=== PATIENT | female | born 1975 | race Caucasian/White ===

== ENCOUNTER 2017-03-03 11:48 | Outpatient (CLI) | payer MEDICAID ==
[2017-03-03 12:22] LABS: APPEARANCE,URINE CLEAR; BILIRUBIN,URINE NEGATIVE (NEGATIVE); GLUCOSE, URINE NEGATIVE (NEGATIVE); KETONES,URINE NEGATIVE (NEGATIVE); LEUKOCYTE ESTERASE,URINE TRACE (NEGATIVE); NITRITE,URINE NEGATIVE (NEGATIVE); PROTEIN,URINE NEGATIVE (NEGATIVE); URINE SPECIFIC GRAVITY 1.009; UROBILINOGEN,URINE NEGATIVE mg/dL (<2.0)
--- NOTE | 2017-03-03 12:31 | Non Stress Test Report ---
Non Stress Test Datetime Report Generated by CPN: 03/03/2017 12:30 DEMOGRAPHIC Test Number: 1 EGA NST: 38.0 INDICATION Indication for Study: Ordered by Provider Indication for Study (NST) Other: Labor Check MONITORING Monitor Explained: Monitor Explained; Test Explained; Patient Verbalized Understanding Time on Monitor: 03/03/2017 12:06 Time off Monitor: 03/03/2017 12:29 NST Duration: 23 NST INTERVENTIONS NST Interventions: PO Hydration; Reposition Patient Physician Notified NST: Dr. Neilsen BABY A: [id number] BABY A Movement : Present Contraction Frequency : irregular FHR Baseline : 140 Accelerations : 15X15 Decelerations : None Variability : Moderate 6-25bpm NST Review: Meets Criteria for Reactive NST NST Review and Verified By : Ирина Echeverria RN NST Results: Reactive NST REPORT Report Trigger: Send Report
[2017-03-03 12:37] LABS: URINE BARBITURATES SCREEN NEGATIVE; URINE METHADONE SCREEN NEGATIVE; URINE OPIATES LOW NEGATIVE; URINE PHENCYCLIDINE SCREEN NEGATIVE
== END 2017-03-03 13:25 | disposition home or self-care (01) ==
LOC: LC 11:48
PROVIDERS: ATTEND Specialist
DX: Z34.83 Encounter for supervision of other normal pregnancy, third trimester (principal); Z3A.38 38 weeks gestation of pregnancy
CPT/HCPCS: 59025; 80307; 81005

== ENCOUNTER 2017-03-11 11:57 | Inpatient (IN) | payer MEDICAID ==
[2017-03-11] MEDS ORDERED: OXYTOCIN/NORMAL SALINE 1,000 ML IV PRN (12:03)
[2017-03-11] MEDS ORDERED: RINGERS SOLUTION,LACTATED 300 ML IV ONE (12:03)
[2017-03-11] MEDS ORDERED: OXYTOCIN/NORMAL SALINE 20 UNIT/1,000 ML RTUINJ ONE ×2 (13:03→15:28)
[2017-03-11] MEDS ORDERED: LIDOCAINE 1% INJ-PF (10 MG/ML) 30 ML SDV ONE (13:03)
[2017-03-11] MEDS ORDERED: MISOPROSTOL 0.2 MG TABLET ONE (13:03)
[2017-03-11 13:12] LABS: APPEARANCE,URINE CLEAR; BILIRUBIN,URINE NEGATIVE (NEGATIVE); GLUCOSE, URINE NEGATIVE (NEGATIVE); KETONES,URINE NEGATIVE (NEGATIVE); LEUKOCYTE ESTERASE,URINE TRACE (NEGATIVE); NITRITE,URINE NEGATIVE (NEGATIVE); PROTEIN,URINE NEGATIVE (NEGATIVE); URINE SPECIFIC GRAVITY 1.006; UROBILINOGEN,URINE NEGATIVE mg/dL (<2.0)
[2017-03-11] MEDS: RINGERS SOLUTION,LACTATED 1,000 ML IV PRN ×2 (13:14→17:41)
[2017-03-11] MEDS: OXYTOCIN/NORMAL SALINE 1,000 ML IV PRN ×2 (13:15→17:41)
[2017-03-11 13:19] LABS: ABSOLUTE EOSINOPHILS # (AUTO) 0.1 10^3/uL (0.0-0.6); ABSOLUTE LYMPHOCYTES (AUTO) 2.2 10^3/uL (0.5-4.7); ABSOLUTE MONOCYTES (AUTO) 0.6 10^3/uL (0.1-1.4); ABSOLUTE NEUT (AUTO) 8.2 10^3/uL (1.7-8.2); BASOPHILS % (AUTO) 0.3 % (0-2); EOSINOPHILS % (AUTO) 0.7 % (0-6); HEMATOCRIT 33.1 % (36.0-47.0); HEMOGLOBIN 11.4 g/dL (12.0-15.5); HGB HCT DIFFERENCE 1.1; LYMPHOCYTES % (AUTO) 19.9 % (13-45); MEAN CORPUSCULAR HEMOGLOBIN 32.1 pg (27.0-33.4); MEAN CORPUSCULAR HGB CONC 34.5 g/dL (32.0-36.0); MEAN CORPUSCULAR VOLUME 93 fl (80-97); MONOCYTES % (AUTO) 5.8 % (3-13); RED BLOOD COUNT 3.54 10^6/uL (3.72-5.28); RED CELL DISTRIBUTION WIDTH 12.8 % (11.5-14.0); SEGMENTED NEUTROPHILS % (AUTO) 73.3 % (42-78); WHITE BLOOD COUNT 11.2 10^3/uL (4.0-10.5)
[2017-03-11 13:29] LABS: URINE BARBITURATES SCREEN NEGATIVE; URINE METHADONE SCREEN NEGATIVE; URINE OPIATES LOW NEGATIVE; URINE PHENCYCLIDINE SCREEN NEGATIVE
[2017-03-11] MEDS ORDERED: FENTANYL CITRATE INJ/PF 100 MCG/2 ML AMPUL IV ONE (14:15)
[2017-03-11] MEDS ORDERED: FENTANYL CITRATE INJ/PF 100 MCG/2 ML AMPUL ONE (14:15)
[2017-03-11] MEDS ORDERED: ACETAMINOPHEN WITH CODEINE #3 TABLET ONE (15:27)
[2017-03-11] MEDS ORDERED: IBUPROFEN 800 MG TABLET ONE (15:28)
--- NOTE | 2017-03-11 16:41 | Delivery Summary ---
Del Sum A-C Datetime Report Generated by CPN: 03/11/2017 16:40 DELIVERY PERSONNEL DELIVERY PERSONNEL: [phone] Delivery Doctor:: Rosalino Garcia CNM Labor and Delivery Nurse:: Elisha Kothari RNdrafting layout worker Nurse:: NASIM Anderson Tech/PLUG MAKING OPERATOR: Machelle Sood CNA II MATERNAL INFORMATION Delivery Anesthesia: None Medications After Delivery: Pitocin Drip 20 Units/1000ml NSS Meds After Delivery Comment: 2 bags of pitocin given per Ирина Garcia CNM Estimated Blood Loss (ml): 300 Maternal Complications: Other Other Maternal Complications: AMA Provider Comments: increased urge to push bed prepared for delivery delivery of baby boy HEIDE infant to abdomen tactile stimulation elicits spont cry cord blood obtained 3VC placenta intact uterus explored min clots expelled fundus firm EBL 300 cc no lacerations bonding well with hemostasis achieved LABOR SUMMARY EDC: 03/17/2017 00:00 No. Babies in Womb: 1 Attempted: No Labor Anesthesia: IV Sedation LABOR INFORMATION Reason for Induction: Other Reason for Induction- Other: AMA Onset of Labor: 03/11/2017 13:45 Complete Dilatation: 03/11/2017 15:06 Oxytocin: Augmentation Group B Beta Strep: negative Steroids Given: None Reason Steroids Not Administered: Not Applicable MEMBRANES Membranes Rupture Method: Artificial Rupture of Membranes: 03/11/2017 13:38 Length of Rupture (hr): 1.55 Amniotic Fluid Color: Clear Amniotic Fluid Amount: Scant Amniotic Fluid Odor: Normal STAGES OF LABOR Stage 1 hr: 1 Stage 1 min: 21 Stage 2 hr: 0 Stage 2 min: 5 Stage 3 hr: 0 Stage 3 min: 2 Total Time in Labor hr: 1 Total Time in Labor min: 28 VAGINAL DELIVERY Episiotomy: None Laceration Extension: N/A Laceration Type: None Laceration Repair: Not Applicable Sponge Count Correct: Yes Sharps Count Correct: Yes CSECTION DELIVERY Primary Indication: N/A Secondary Indication: N/A CSection Incidence: N/A Labor: N/A Elective: N/A CSection Incision: N/A BABY A INFORMATION Delivery Date/Time: 03/11/2017 15:11 Method of Delivery: Vaginal Born in Route : No : N/A Forceps: N/A Vacuum Extraction: N/A Shoulder Dystocia : No PRESENTATION/POSITION BABY A Presentation: Cephalic Cephalic Presentation: Vertex Vertex Position: Right Occipital Anterior Breech Presentation: N/A PLACENTA INFORMATION BABY A Placenta Delivery Time : 03/11/2017 15:13 Placenta Method of Delivery: Spontaneous Placenta Status: Delivered SCORES BABY A Heart Rate 1 min: >100 bpm Resp Effort 1 min: Good Cry Reflex Irritability 1 min: Cough or Sneeze or Pulls Away Muscle Tone 1 min: Active Motion Color 1 min: Body [place], Extremities Blue Resuscitation Effort 1 min: Tactile Stimulation SCORE 1 MIN: 9 Heart Rate 5 min: >100 bpm Resp Effort 5 min: Good Cry Reflex Irritability 5 min: Cough or Sneeze or Pulls Away Muscle Tone 5 min: Active Motion Color 5 min: Body [place], Extremities Blue Resuscitation Effort 5 min: Tactile Stimulation SCORE 5 MIN: 9 INFORMATION BABY A Gestational Age at Delivery: 39.1 Gestational Status: Full Term- 39- 40.6 Weeks Infant Outcome : Liveborn Condition : Stable Infant Sex: Male IDENTIFICATION BABY A Infant Verification Date/Time: 03/11/2017 15:27 ID Band Number: [id number] Mother's Name Verified: Yes Infant RN Verifying : AEdel Guthrie RN Meme Carlton RN WEIGHT/LENGTH BABY A Birthweight (gm): 2630 Weight (lb): 5 Infant Weight (oz): 13 Length (in): 18.75 Length (cm): 47.63 CORD INFORMATION BABY A No. Cord Vessels: 3 Nuchal Cord : N/A Cord Blood Taken: Yes-For Storage (Mom's Blood type +) Suction: Mouth; Nose ASSESSMENT BABY A Infant Complications: None Physical Findings at Delivery: Within Normal Limits Infant Respirations: Appears Normal Skin to Skin: Yes Tester Armature Or Fields/ALS Called : No Care By: AEdel Guthrie RN Transferred To: Remains with Mother BABY B INFORMATION : N/A SIGNATURES Assignment: Brigid Bojorquez MD Signature: with User ID: [email or web address] : with User ID: [email or web address]
--- NOTE | 2017-03-11 17:36 | Admission Physical ---
Datetime Report Generated by CPN: 03/11/2017 17:36 CURRENT ADMISSION Admit Plan: Admit to Unit; Initiate Labor Induction Protocol ALLERGIES Medication Allergies: Yes Medication Allergies: aspirin (02/25/2013); pseudoephedrine (03/03/2017) Medication Allergies: aspirin (02/25/2013), sudafed Latex: No Latex Allergies Food Allergies: none Environmental Allergies: none OBSTETRICAL HISTORY EDC: 03/17/2017 00:00 : 8 Para: 7 Term: 5 : 2 SAB: 0 IAB: 0 Ectopic: 0 Livin Cesareans: 0 VBACs: 0 Multiple Births: 0 Gestational Diabetes: No Rh Sensitization: No Incompetent Cervix: No ANNETTE: No Infertility: No ART Treatment: No Uterine Anomaly: No IUGR: Yes Hx Previous C/S: No Macrosomia: No Hx Loss/Stillborn: No PIH: No Hx : No Placenta Previa/Abruption: No Depression/PP Depression: No PTL/PROM: No Post Hemorrhage: Yes Current Procedures: Ultrasound Obstetrical History Comments: G1: 36 weeks, 1995 G2: 38 weeks 1996 G3: 37 weeks, 2001 G4: 37 weeks 2004 G5: 36 weeks, 2006 G6: 39 weeks, 2010 G7: 37 weeks, 2014 G8: current SEE RECORDS Alcohol: No Marijuana : No Cocaine: No Other Illicit Drugs: No Cigarettes: Current Everyday Smoker. [id number] MEDICAL HISTORY Diabetes: No Blood Transfusion: No Pulmonary Disease (Asthma, TB): No Breast Disease: No Hypertension: No Rope Walker Surgery: No Heart Disease: No Hosp/Surgery: No Autoimmune Disorder: No Anesthetic Complications: No Kidney Disease: Yes Abnormal Pap Smear: Yes Neuro/Epilepsy: No Psychiatric Disorders: No Other Medical Diseases: No Hepatitis/Liver Disease: No Significant Family History: No Varicosities/Phlebitis: No Trauma/Violence : No Thyroid Dysfunction: No Medical History Comments: Soft sponge medula kidney disease asthma, COPD LEEP INFECTIOUS HISTORY Gonorrhea: No Genital Herpes: No Chlamydia: No Tuberculosis: No Syphilis: No Hepatitis: No HIV/AIDS Exposure: No Rash or Viral Illness: No HPV: Yes PHYSICAL EXAM General: Normal HEENT: Normal Neurologic: Normal Thyroid: Normal Heart: Normal Lungs: Normal Breast: Normal Back: Normal Abdomen: Normal Genitourinary Exam: Normal Extremities: Normal DTRs: Normal Pelvic Type: Adequate FETUS A Monitoring: External US FHR- Baseline: 120 Variability: Moderate 6-25bpm Decelerations: None FHR Category: Category I Presentation: Vertex Admit Comment: 42yo presents for iol secondary to AMA EDC 03/17/17 EGA 39.1 history- 2 previous LEEPS- 2 deliveries since then abdomen nontender cvx -1 AROMclear with bloody show AMA Grand Multip History of LEEP pitocin induction plan of care reviewed AROM clear anticipate PLANS FOR LABOR AND DELIVERY Labor and Delivery: None Pain Management: Epidural Feeding Preference: Breast Benefit of Breast Feed Discussed: Yes Circumcision: No INFORMED CONSENT Informed Consent Obtained: Vaginal Delivery; Induction of Labor; Risks, Benefits and Alternatives Discussed Assignment: Brigid Bojorquez MD Signature: with User ID: [email or web address] : with User ID: [email or web address]
[2017-03-11] MEDS ORDERED: DIBUCAINE 1% OINTMENT 28 GM TP PRN (18:46)
[2017-03-11] MEDS ORDERED: DIPH/PERTUSS(ACELL)/TETANUS VAC/PF 0.5 ML SYR (>=10YO) IM PRN (18:46)
[2017-03-11] MEDS ORDERED: ZOLPIDEM TARTRATE 5 MG TABLET PO PRN (18:46)
[2017-03-11] MEDS ORDERED: BENZOCAINE/MENTHOL AEROSOL SPRAY 56 ML TOP PRN (18:46)
[2017-03-11] MEDS ORDERED: MEASLES,MUMPS&RUBELLA VACC/PF 0.5 ML VIAL SUBCUT PRN (18:46)
[2017-03-11] MEDS ORDERED: ACETAMINOPHEN WITH CODEINE #3 TABLET PO PRN ×2 (18:46)
[2017-03-11] MEDS: IBUPROFEN 800 MG TABLET PO SCH (21:38)
[2017-03-12] MEDS: IBUPROFEN 800 MG TABLET PO SCH ×2 (05:32→13:43)
[2017-03-12 07:32] LABS: HEMATOCRIT 31.8 % (36.0-47.0); HEMOGLOBIN 10.9 g/dL (12.0-15.5); HGB HCT DIFFERENCE 0.9; MEAN CORPUSCULAR HEMOGLOBIN 32.1 pg (27.0-33.4); MEAN CORPUSCULAR HGB CONC 34.4 g/dL (32.0-36.0); MEAN CORPUSCULAR VOLUME 93 fl (80-97); RED BLOOD COUNT 3.41 10^6/uL (3.72-5.28); RED CELL DISTRIBUTION WIDTH 12.9 % (11.5-14.0); WHITE BLOOD COUNT 12.7 10^3/uL (4.0-10.5)
[2017-03-12 08:26] VITALS: BP 111/67
--- NOTE | 2017-03-12 09:40 | PDOC PROGRESS REPORT ---
Subjective-OB Subjective: Post Delivery Day: 42 year old. Denies any needs at this time Physical Exam (OB) Vital Signs: Temp Pulse Resp BP Pulse Ox 97.8 F 71 17 111/67 98 03/12/17 08:12 03/12/17 08:12 03/12/17 08:12 03/12/17 08:12 03/12/17 08:12 Intake & Output 03/11/17 03/12/17 03/13/17 06:59 06:59 06:59 Weight 68.55 kg - Lochia Lochia Amount: Scant < 10 ml Lochia Color: Rubra/Red - Abdomen Description: Tender, Soft Hernia Present: No Bowel Sounds: Normoactive Flatus Presence: Present Stool: No Fundal Description: Firm, Midline Fundal Height: u/u - u/2 Objective-Diagnostic Laboratory: 03/12/17 07:00 03/11/17 03/11/17 03/11/17 12:01 13:01 13:01 WBC 11.2 H RBC 3.54 L Hgb 11.4 L Hct 33.1 L MCV 93 MCH 32.1 MCHC 34.5 RDW 12.8 Plt Count 249 Seg Neutrophils % 73.3 Lymphocytes % 19.9 Monocytes % 5.8 Eosinophils % 0.7 Basophils % 0.3 Absolute Neutrophils 8.2 Absolute Lymphocytes 2.2 Absolute Monocytes 0.6 Absolute Eosinophils 0.1 Absolute Basophils 0.0 Urine Color YELLOW Urine Appearance CLEAR Urine pH 7.0 Ur Specific [place] 1.006 Urine Protein NEGATIVE Urine Glucose (UA) NEGATIVE Urine Ketones NEGATIVE Urine Blood NEGATIVE Urine Nitrite NEGATIVE Ur Leukocyte Esterase TRACE H Blood Type A POSITIVE Antibody Screen NEGATIVE 03/12/17 07:00 WBC 12.7 H RBC 3.41 L Hgb 10.9 L Hct 31.8 L MCV 93 MCH 32.1 MCHC 34.4 RDW 12.9 Plt Count 249 Seg Neutrophils % Lymphocytes % Monocytes % Eosinophils % Basophils % Absolute Neutrophils Absolute Lymphocytes Absolute Monocytes Absolute Eosinophils Absolute Basophils Urine Color Urine Appearance Urine pH Ur Specific [place] Urine Protein Urine Glucose (UA) Urine Ketones Urine Blood Urine Nitrite Ur Leukocyte Esterase Blood Type Antibody Screen
[2017-03-12] MEDS ORDERED: [UNRECOGNIZED DRUG - OTHER] PO SCH (10:00)
[2017-03-12] MEDS ORDERED: FISH OIL PO SCH (10:00)
[2017-03-12] MEDS ORDERED: DHA PO SCH (10:00)
[2017-03-12] MEDS: FERROUS SULFATE 325 MG TABLET PO SCH ×2 (10:00→17:44)
[2017-03-12] MEDS ORDERED: SENNOSIDES/DOCUSATE 8.6-50 MG 1 EACH TABLET PO SCH (10:00)
[2017-03-12] MEDS ORDERED: PRENATAL VITAMIN W-O CA NO5/FE FUMARATE/FA CAPSULE PO SCH ×2 (10:00)
[2017-03-12] MEDS: DOCUSATE SODIUM 100 MG CAPSULE PO SCH ×2 (10:00→17:44)
[2017-03-12] MEDS ORDERED: OMEGA3 PO SCH (10:00)
--- NOTE | 2017-03-12 10:00 | PDOC DISCHARGE SUMMARY ---
Final Diagnosis Discharge Date: 03/12/17 - Final Diagnosis (1) AMA (advanced maternal age) multigravida 35+ Is this a current diagnosis for this admission?: Yes (2) Asthma Is this a current diagnosis for this admission?: Yes (3) Delivery normal Is this a current diagnosis for this admission?: Yes (4) Grand multipara Is this a current diagnosis for this admission?: Yes (5) History of loop electrical excision procedure (LEEP) Is this a current diagnosis for this admission?: Yes (6) Is this a current diagnosis for this admission?: Yes (7) Smoker Is this a current diagnosis for this admission?: Yes Discharge Data - Discharge Medication Home Medications: Wir406/FA/Omega3/Dha/Fish Oil [ Gummies] 1 tab PO DAILY 03/11/17 Pnv W-O Ca No5/Fe Fumarate/FA [-U Multiple Vitamin Capsule] 1 cap PO DAILY #0 capsule 03/12/17 Gestational Age: 39.1 wks Reason(s) for Admission: Induction of Labor Intrapartum Procedure(s): Spontaneous Vaginal Delivery - Diagnosis Test Laboratory: Temp Pulse Resp BP Pulse Ox 97.8 F 71 17 111/67 98 03/12/17 08:12 03/12/17 08:12 03/12/17 08:12 03/12/17 08:12 03/12/17 08:12 03/11/17 03/11/17 03/12/17 12:01 13:01 07:00 RBC 3.54 L 3.41 L Hgb 11.4 L 10.9 L Hct 33.1 L 31.8 L Urine Opiates Screen NEGATIVE - Discharge information/Instructions Discharge Activity: Activity As Tolerated, Balance Activity w/Rest, Pelvic Rest , Slowly Increase Activity, No tub bath Discharge Diet: Regular Disposition: HOME, SELF-CARE Follow up with: [facility] in: 4, Weeks
== END 2017-03-12 18:25 | disposition home or self-care (01) | DRG 775 ==
LOC: LR 11:57 → 2S 17:33
PROVIDERS: ADMIT Obstetrics & Gynecology; ATTEND Obstetrics & Gynecology
PROC: 10E0XZZ Delivery of Products of Conception, External Approach (ICD-10-PCS; principal; 2017-03-11)
PROC: 3E033VJ Introduction of Other Hormone into Peripheral Vein, Percutaneous Approach (ICD-10-PCS; 2017-03-11)
PROC: 10907ZC Drainage of Amniotic Fluid, Therapeutic from Products of Conception, Via Natural or Artificial Opening (ICD-10-PCS; 2017-03-11)
DX: O99.89 Other specified diseases and conditions complicating pregnancy, childbirth and the puerperium (principal); Q61.5 Medullary cystic kidney; O99.334 Smoking (tobacco) complicating childbirth; F17.210 Nicotine dependence, cigarettes, uncomplicated; O62.3 Precipitate labor; O75.89 Other specified complications of labor and delivery; J45.909 Unspecified asthma, uncomplicated; Z3A.39 39 weeks gestation of pregnancy; Z37.0 Single live birth; O09.523 Supervision of elderly multigravida, third trimester; O09.43 Supervision of pregnancy with grand multiparity, third trimester
CPT/HCPCS: 36415; 80307; 81005; 85025; 85027; 86592; 86850; 86900; 86901; 88307; 90707; J2590; J3010; J3490

== ENCOUNTER 2018-10-05 12:28 | Emergency (ER) | payer MEDICAID ==
--- NOTE | 2018-10-05 13:43 | ER Document Report ---
ED Medical Screen (RME) - General Chief Complaint: Flank Pain Stated Complaint: SIDE PAIN Time Seen by Provider: 10/05/18 13:31 TRAVEL OUTSIDE OF THE [place] IN LAST 30 DAYS: No - HPI Notes: 10/05/18 13:43 Right flank pain with history of medullary sponge kidney coming in for possible kidney stone. States pain on the right flank similar to kidney stones in the past. 10/05/18 13:43 Sent by urgent care - Related Data Allergies/Adverse Reactions: aspirin [Aspirin] Allergy (Verified 02/25/13 16:31) pseudoephedrine [From Sudafed] Allergy (Verified 03/03/17 12:30) Past Medical History - Social History Frequency of alcohol use: None Drug Abuse: None Pulmonary Medical History: Reports: Hx COPD Renal/ Medical History: Reports: Hx Kidney Stones. Denies: Hx Peritoneal Dialysis, Hx Pelvic Inflammatory Disease Past Surgical History: Reports: Hx Gynecologic Surgery - LEEP, Hx Urinary Tract Surgery - lithotrypsy Review of Systems - Review of Systems Genitourinary: Flank pain Physical Exam - Vital signs Vitals: Temp Pulse Resp BP Pulse Ox 98.2 F 76 18 125/79 99 10/05/18 12:33 10/05/18 12:33 10/05/18 12:33 10/05/18 12:33 10/05/18 12:33 - Respiratory Respiratory status: No respiratory distress Chest status: Nontender Breath sounds: Normal Chest palpation: Normal - Abdominal Inspection: Normal Distension: No distension Bowel sounds: Normal Tenderness: Nontender Course - Vital Signs Vital signs: Temp Pulse Resp BP Pulse Ox 98.2 F 76 18 125/79 99 10/05/18 12:33 10/05/18 12:33 10/05/18 12:33 10/05/18 12:33 10/05/18 12:33
[2018-10-05 14:12] LABS: APPEARANCE,URINE CLOUDY; BILIRUBIN,URINE NEGATIVE (NEGATIVE); COLOR,URINE YELLOW; GLUCOSE, URINE NEGATIVE (NEGATIVE); KETONES,URINE NEGATIVE (NEGATIVE); LEUKOCYTE ESTERASE,URINE LARGE (NEGATIVE); NITRITE,URINE NEGATIVE (NEGATIVE); PROTEIN,URINE 30 mg/dL (NEGATIVE); URINE SPECIFIC GRAVITY 1.019
[2018-10-05] MEDS ORDERED: KETOROLAC TROMETHAMINE INJ/PF 30 MG/1 ML SDV IV ONE (14:23)
--- NOTE | 2018-10-05 14:28 | ER Document Report ---
ED General - General Mode of Arrival: Ambulatory Information source: Patient TRAVEL OUTSIDE OF THE [place] IN LAST 30 DAYS: No <BILL MENDENHALL - Last Filed: 10/05/18 14:30> <ISMAEL MARTINEZ - Last Filed: 10/05/18 17:24> - General Chief Complaint: Flank Pain Stated Complaint: SIDE PAIN Time Seen by Provider: 10/05/18 13:31 Notes: Patient is a 43 year old female with medullary sponge kidney disease bilaterally , arthritis, emphysema was sent to the emergency department from urgent care complaining of right flank and right abdominal pain onset 2 days ago. Patient's associated symptoms include burning urination, hematuria and vomiting. Patient states she believes she has a kidney stone due her symptoms feeling similar to a previous one. Patient denies any fevers. (BILL MENDENHALL) - Related Data Allergies/Adverse Reactions: aspirin [Aspirin] Allergy (Verified 02/25/13 16:31) pseudoephedrine [From Sudafed] Allergy (Verified 03/03/17 12:30) Past Medical History - General Information source: Patient - Social History Smoking Status: Current Every Day Smoker Frequency of alcohol use: None Drug Abuse: None Family History: Other - kidney stones, raynauds Patient has suicidal ideation: No Patient has homicidal ideation: No Pulmonary Medical History: Reports: Hx COPD Renal/ Medical History: Reports: Hx Kidney Stones Past Surgical History: Reports: Hx Gynecologic Surgery - LEEP, Hx Urinary Tract Surgery - lithotrypsy '98 <BILL MENDENHALL - Last Filed: 10/05/18 14:30> Review of Systems - Review of Systems Constitutional: No symptoms reported EENT: No symptoms reported Cardiovascular: No symptoms reported Gastrointestinal: No symptoms reported Genitourinary: See HPI, Burning, Flank pain, Hematuria Female Genitourinary: No symptoms reported Musculoskeletal: No symptoms reported Skin: No symptoms reported Hematologic/Lymphatic: No symptoms reported Neurological/Psychological: No symptoms reported -: Yes All other systems reviewed and negative <BILL MENDENHALL - Last Filed: 10/05/18 14:30> Physical Exam <BILL MENDENHALL - Last Filed: 10/05/18 14:30> <ISMAEL MARTINEZ - Last Filed: 10/05/18 17:24> - Vital signs Vitals: Temp Pulse BP Pulse Ox 98.5 F 76 125/79 98 10/05/18 12:31 10/05/18 12:31 10/05/18 12:31 10/05/18 12:31 - Notes Notes: GENERAL: Alert, interacts well. No acute distress. HEAD: Normocephalic, atraumatic. EYES: Pupils equal, round, and reactive to light. Extraocular movements intact. ENT: Oral mucosa moist, tongue midline. NECK: Full range of motion. Supple. Trachea midline. LUNGS: Clear to auscultation bilaterally, no wheezes, rales, or rhonchi. No respiratory distress. HEART: Regular rate and rhythm. No murmurs, gallops, or rubs. ABDOMEN: Soft, non-tender. Non-distended. Bowel sounds present in all 4 quadrants. EXTREMITIES: Moves all 4 extremities spontaneously. NEUROLOGICAL: Alert and oriented x3. Normal speech. PSYCH: Normal affect, normal mood. SKIN: Warm, dry, normal turgor. No rashes or lesions noted. BACK: Right CVA tenderness to percussion. (BILL MENDENHALL) Course <BILL MENDENHALL - Last Filed: 10/05/18 14:30> - Laboratory Result Diagrams: 10/05/18 14:30 10/05/18 14:30 <ISMAEL MARTINEZ - Last Filed: 10/05/18 17:24> - Re-evaluation Re-evalutation: 10/05/18 16:54 CBC shows leukocytosis of 13.6, BMP normal, urinalysis shows small blood and large leukocyte esterase, test is negative, CT scan renal stone protocol does not show a stone or any signs of obstruction. It does show the known abnormalities to her kidneys. All of this more consistent with acute pyelonephritis with hematuria than a stone that is infected. Patient will be started on Bactrim and discharged to home. (ISMAEL MARTINEZ) - Vital Signs Vital signs: Temp Pulse Resp BP Pulse Ox 98.2 F 76 16 118/85 98 10/05/18 12:33 10/05/18 12:33 10/05/18 17:01 10/05/18 17:01 10/05/18 17:01 - Laboratory Laboratory results interpreted by me: 10/05/18 10/05/18 13:45 14:30 WBC 13.6 H Absolute Neutrophils 10.4 H Urine Protein 30 H Urine Blood SMALL H Urine Urobilinogen 2.0 H Ur Leukocyte Esterase LARGE H Discharge <BILL MENDENHALL - Last Filed: 10/05/18 14:30> <ISMAEL MARTINEZ - Last Filed: 10/05/18 17:24> - Discharge Clinical Impression: Urinary tract infection Qualifiers: Urinary tract infection type: acute pyelonephritis Qualified Code(s): N10 - Acute pyelonephritis Condition: Stable Disposition: HOME, SELF-CARE Additional Instructions: Pyelonephritis Your evaluation shows evidence of pyelonephritis. This is an infection in the kidney. Typical symptoms are fever, pain in the flank, pain on urination, and frequent urination. Many cases of pyelonephritis can be treated at home. Hospital care may be necessary for patients who are very ill, or elderly or . Pyelonephritis is treated with antibiotics. Be sure to take all the medication as prescribed. Drink plenty of liquids (about three quarts per day) . You may take acetaminophen for fever. You should feel significantly improved within two days. You should have a recheck of your urine in about one week to insure that the infection is gone. Return for a re-examination if your symptoms worsen in any way -- such as high fever, shaking chills, severe weakness or dizziness, severe pain, or inability to pass your urine. Prescriptions: Phenazopyridine HCl [Pyridium 200 mg Tablet] 200 mg PO TID #7 tablet Sulfamethoxazole/Trimethoprim [Bactrim Ds Tablet] 1 each PO BID #14 tablet Forms: Return to Work Referrals: MAT CAST DO [Primary Care Provider] - Follow up as needed Scribe Attestation: 10/05/18 17:23 I personally performed the services described in the documentation, reviewed and edited the documentation which was dictated to the scribe in my presence, and it accurately records my words and actions. (ISMAEL MARTINEZ) Scribe Documentation - Scribe Written by Lora:: Lora Cast, 10/05/2018 14:29 acting as scribe for :: Lynsey <BILL MENDENHALL - Last Filed: 10/05/18 14:30>
[2018-10-05 15:00] LABS: ABSOLUTE EOSINOPHILS # (AUTO) 0.1 10^3/uL (0.0-0.6); ABSOLUTE LYMPHOCYTES (AUTO) 2.2 10^3/uL (0.5-4.7); ABSOLUTE MONOCYTES (AUTO) 0.8 10^3/uL (0.1-1.4); ABSOLUTE NEUT (AUTO) 10.4 10^3/uL (1.7-8.2); BASOPHILS % (AUTO) 0.3 % (0-2); EOSINOPHILS % (AUTO) 0.8 % (0-6); HEMATOCRIT 42.3 % (36.0-47.0); HEMOGLOBIN 14.4 g/dL (12.0-15.5); LYMPHOCYTES % (AUTO) 16.3 % (13-45); MEAN CORPUSCULAR HEMOGLOBIN 32.3 pg (27.0-33.4); MEAN CORPUSCULAR VOLUME 95 fl (80-97); MONOCYTES % (AUTO) 6.1 % (3-13); PLATELET COUNT 306 10^3/uL (150-450); RED BLOOD COUNT 4.45 10^6/uL (3.72-5.28); RED CELL DISTRIBUTION WIDTH 13.5 % (11.5-14.0); SEGMENTED NEUTROPHILS % (AUTO) 76.5 % (42-78); TOTAL CELLS COUNTED % (AUTO) 100 %; WHITE BLOOD COUNT 13.6 10^3/uL (4.0-10.5)
[2018-10-05 15:20] LABS: ANION GAP 11 (5-19); BLOOD UREA NITROGEN 9 mg/dL (7-20); CALCIUM 9.8 mg/dL (8.4-10.2); CARBON DIOXIDE 27 mmol/L (22-30); CHLORIDE 104 mmol/L (98-107); GLUCOSE 91 mg/dL (75-110); POTASSIUM 3.9 mmol/L (3.6-5.0); SODIUM 142.3 mmol/L (137-145)
--- NOTE | 2018-10-05 15:46 | RADIOLOGY REPORT (SQ) ---
EXAM DESCRIPTION: CT LTD RENAL STONE PROTOCOL ON COMPLETED DATE/TIME: 10/05/2018 3:34 pm REASON FOR STUDY: right flank pain COMPARISON: None. TECHNIQUE: CT scan of the abdomen and pelvis performed without intravenous or oral contrast. Images reviewed with lung, soft tissue, and bone windows. Reconstructed coronal and sagittal MPR images revi ewed. All images stored on PACS. All CT scanners at this facility use dose modulation, iterative reconstruction, and/or weight based d osing when appropriate to reduce radiation dose to as low as reasonably achievable (ALARA). [facility]: Dose Right [facility]: CareDose [facility]: Dose Right [facility]: Teradose 4D [facility]: [employer] RADIATION DOSE: CT Rad equipment meets quality standard of care and radiation dose reduction techniq ues were employed. CTDIvol: 4.8 mGy. DLP: 245 mGy-cm.mGy. LIMITATIONS: None. FINDINGS: LOWER CHEST: No significant findings. No nodules or infiltrates. NON-CONTRASTED LIVER, SPLEEN, ADRENALS: Evaluation limited by lack of IV contrast. No identified sign ificant masses. PANCREAS: No masses. No peripancreatic inflammatory changes. GALLBLADDER: No identified stones by CT criteria. No inflammatory changes to suggest cholecystitis. RIGHT KIDNEY AND URETER: No suspicious masses. Assessment limited by lack of IV contrast. Papillary calcification. No hydronephrosis or hydroureter. LEFT KIDNEY AND URETER: No suspicious masses. Assessment limited by lack of IV contrast. Papillary calcifications. No hydronephrosis or hydroureter. AORTA AND RETROPERITONEUM: No aneurysm. No retroperitoneal masses or adenopathy. BOWEL AND PERITONEAL CAVITY: No obvious masses or inflammatory changes. No free fluid. APPENDIX: Surgically absent. PELVIS, BLADDER, AND ABDOMINAL WALL:No abnormal masses. No free fluid. Bladder normal. BONES: No significant findings. OTHER: No other significant finding. IMPRESSION: Bilateral renal papillary calcifications. No obstructive changes. COMMENT: Quality ID # [id number]: Final reports with documentation of one or more dose reduction techniques (e.g., Automated exposure control, adjustment of the mA and/or kV according to patient size, use of iterative reconstruction technique) TECHNICAL DOCUMENTATION: JOB ID: [id number] [employer]- All Rights Reserved Reading location - IP/workstation name: [email or web address]
[2018-10-05] MEDS ORDERED: CEFTRIAXONE 1 GM/D5W RTU 1 GM/50 ML RTUPB IV ONE (16:50)
[2018-10-05 17:20] VITALS: BP 118/85
== END 2018-10-05 17:30 | disposition home or self-care (01) ==
LOC: ER 12:28
DX: N10 Acute pyelonephritis (principal); R10.9 Unspecified abdominal pain; R30.9 Painful micturition, unspecified; R11.10 Vomiting, unspecified; F17.200 Nicotine dependence, unspecified, uncomplicated; J44.9 Chronic obstructive pulmonary disease, unspecified
CPT/HCPCS: 99284; 96375; 96365; 36415; 87086; 85025; 81025; 87088; 80048; 81001; 87186; 76380; J1885; J0696

== ENCOUNTER → 2019-03-12 | Outpatient (CLI) | payer MEDICAID ==
--- NOTE | 2019-03-12 10:10 | RADIOLOGY REPORT (SQ) ---
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 TECHNIQUE: Sagittal and Axial imaging includes T1, T2, STIR and gradient echo sequences. Coronal T2/ HASTE imaging. LIMITATIONS: Motion. FINDINGS: VISUALIZED UPPER ABDOMEN: Limited evaluation. No acute or suspicious findings suggested. SEGMENTATION: No transitional anatomy. The lowest well-developed disc space is labeled L5-S1. ALIGNMENT: Anatomic. VERTEBRAE: Intact. BONE MARROW: Normal. No marrow replacement or reactive changes. DISC SIGNAL: Desiccation L3-4 through L5-S1. POSTERIOR ELEMENTS: Generally intact. No pars defect evident. HARDWARE: None in the spine. CORD AND CONUS: Normal in size and signal intensity. Conus at the appropriate level. SOFT TISSUES: No aortic aneurysm seen. No bulky retroperitoneal adenopathy or mass. No paraspinal mas s or fluid. L1-L2: No significant spinal stenosis or exit foraminal stenosis. L2-L3: No significant spinal stenosis or exit foraminal stenosis. L3-L4: No significant spinal stenosis or exit foraminal stenosis. L4-L5: Disc bulge and facet arthropathy. No significant stenosis. L5-S1: Right paracentral annular fissure. Percent arthropathy. No significant stenosis. LOWER THORACIC: Incompletely imaged. No stenosis seen. SACRUM: Visualized upper sacrum intact. OTHER: No other significant findings. IMPRESSION: Facet arthropathy. Annular fissure L5-S1. TECHNICAL DOCUMENTATION: JOB ID: [id number] [employer]- All Rights Reserved Reading location - IP/workstation name: [email or web address]
== END ==
LOC: RAD 08:07
PROVIDERS: ATTEND Internal Medicine
DX: M54.42 Lumbago with sciatica, left side (principal)
CPT/HCPCS: 72148

== ENCOUNTER → 2019-04-18 | Outpatient (CLI) | payer MEDICAID ==
[2019-04-18 11:26] LABS: FREE T3 3.89 pg/mL (2.77-5.27); FREE T4 (FREE THYROXINE) 1.03 ng/dL (0.78-2.19)
[2019-04-18 11:40] LABS: THYROID STIMULATING HORMONE 0.77 uIU/mL (0.47-4.68)
[2019-04-18 12:16] LABS: FOLATE 7.32 ng/mL (>2.76)
== END ==
LOC: OD 09:37
PROVIDERS: ATTEND Specialist
DX: G62.9 Polyneuropathy, unspecified (principal)
CPT/HCPCS: 36415; 82607; 82746; 83036; 84439; 84443; 84481; 85652; 86038